=== PATIENT | male | born 1970 | race Caucasian/White ===

== ENCOUNTER → 2017-01-05 | Day surgery (SDC) | payer BC ==
[~2017-01-05] MED LIST: ARTHROTEC PO; ARTHROTEC50 MG PO; ATIVAN1 MG; ATIVAN1 MG PO; AUGMENTIN 875 M1 TAB PO; CYCLOBENZAPRINE10 MG PO; CYCLOBENZAPRINE5 MG PO; DAYPRO600 M1 PO; ELAVIL75 MG PO; MEDROL DOSEPAK4 MG PO; METFORMIN500 MG PO; MOTRIN800 MG PO; NEURONTIN300 MG; NEURONTIN300 MG PO; OMNICEF300 MG PO; PERCOCET 325 MG1 TA7 PO; PREDNICOT20 MG PO; PREDNISONE10 MG PO; PYRIDIUM200 MG PO; SKELAXIN800 MG PO; TOPROL XL100 MG PO; TRAMADOL HCL50 MG PO; VICODEN PO; VICODIN 5/500 505 MG; VICODIN 5/500 505 MG PO; VICODIN 500 MG-1 TAB PO
--- NOTE | ~2017-01-05 | PROC NOTE ---
[place], [place] PROCEDURE NOTE NAME: PETER BAKER [facility] #: [id number] UNIT #: [id number] ROOM: DOCTOR: VENANCIO MASTERS MD BIRTHDATE: [birth year] DOS: 01/05/2017 PREOPERATIVE DIAGNOSIS: Scalp cyst. POSTOPERATIVE DIAGNOSIS: Scalp cyst. PROCEDURE: Excision of scalp cyst. SURGEON: Venancio Masters MD RADIATION ONCOLOGY NURSE: None. ANESTHESIA: Local (1% lidocaine with epinephrine). INDICATIONS: This is a 46-year-old gentleman with a history of longstanding cyst on his scalp who is here for the above-mentioned procedure. The procedure and its complications were explained to the patient in detail preoperatively. Complications that were discussed included but were not limited to, bleeding, infection, and prolonged pain. He agreed to proceed. DESCRIPTION OF PROCEDURE: After identifying the patient, the patient was brought to the operating suite and laid in the supine position. After time-out procedure was called, the parts were painted and draped in the usual sterile fashion. Local anesthesia was infiltrated in a transverse fashion and an incision was made. The skin and the subcutaneous tissue were incised. The cyst was excised in its entirety and sent for histopathological diagnosis. Hemostasis was achieved and thereafter, the skin edges were approximated with the help of 4-0 Vicryl in a subcuticular running fashion. Dressing was placed. The patient tolerated the procedure well. There were no complications. Dr. Venancio Masters, the attending surgeon, was present throughout the operating case. Venancio Masters MD CM:PROCNOTE:PROCEDURE NOTE [id number] VENANCIO MASTERS MD
[2017-01-05 10:45] VITALS: BP 142/81
[2017-01-05 11:26] VITALS: BP 133/89
[2017-01-05 11:35] VITALS: BP 120/86
== END | disposition home or self-care (01) ==
LOC: SDC 12-31 11:00
DX: L72.11 Pilar cyst (principal); I10 Essential (primary) hypertension; F41.9 Anxiety disorder, unspecified; M19.90 Unspecified osteoarthritis, unspecified site; E11.9 Type 2 diabetes mellitus without complications; Z85.51 Personal history of malignant neoplasm of bladder; Z98.890 Other specified postprocedural states; Z83.3 Family history of diabetes mellitus; Z87.891 Personal history of nicotine dependence; Z79.84 Long term (current) use of oral hypoglycemic drugs; Z79.899 Other long term (current) drug therapy

== ENCOUNTER 2018-03-04 12:14 | Emergency (ER) | payer BC ==
[2018-03-04] MEDS ORDERED: ROBAXIN500 M1 PO (12:39)
[2018-03-04] MEDS ORDERED: MEDROL DOSEPAK4 MG PO (12:39)
== END 2018-03-04 13:08 | disposition home or self-care (01) ==
LOC: ED 12:14
DX: M54.41 Lumbago with sciatica, right side (principal); Z79.899 Other long term (current) drug therapy

== ENCOUNTER 2018-03-08 14:38 | Emergency (ER) | payer BC ==
[~2018-03-08] VITALS: Ht 187.9 cm; Wt 111.1 kg
[~2018-03-08 14:38] MED LIST changes: +ROBAXIN500 M1 PO
== END 2018-03-08 16:00 | disposition home or self-care (01) ==
LOC: ED 14:38
DX: M54.30 Sciatica, unspecified side (principal); G89.29 Other chronic pain; Z79.899 Other long term (current) drug therapy; Z85.51 Personal history of malignant neoplasm of bladder; Z98.890 Other specified postprocedural states

== ENCOUNTER 2019-03-19 13:23 | Inpatient (IN) | payer BC ==
[~2019-03-19] VITALS: Ht 187.9 cm; Wt 105.3 kg
[2019-03-19] VITALS (8 sets, daily range): BP systolic 120–162; BP diastolic 61–88
[2019-03-19 13:41] LABS: HEMATOCRIT 43.3 % (42.0-52.0); HEMOGLOBIN 14.7 g/dl (14.0-18.0); MEAN CELL VOLUME 93.5 fl (80.0-94.0); MEAN CORPUSCULAR HGB 31.7 pg (27.0-31.0); MEAN CORPUSCULAR HGB CONC 33.9 g/dl (33.0-37.0); MEAN PLATELET VOLUME 10.7 fl (9.6-12.3); PLATELET COUNT AUTOMATED 207 10*3/uL (130-400); RED BLOOD COUNT 4.63 10*6/uL (4.50-5.90); RED CELL DISTRI WIDTH 12.3 % (0-14.5); WHITE BLOOD COUNT 15.6 10*3/uL (4.8-10.8)
[2019-03-19 13:56] LABS: ALBUMIN 4.1 gm/dl (3.1-4.5); ALKALINE PHOSPHATASE 72 U/L (45-117); BUN 8 mg/dl (7-24); CHLORIDE 104 mmol/L (98-107); CREATININE 0.85 mg/dL (0.70-1.30); LIPASE 80 U/L (73-393); POTASSIUM 3.7 mmol/L (3.5-5.1); SGOT/AST 17 IU/L (3-35); SGPT/ALT 24 U/L (12-78); SODIUM 136 mmol/L (136-145); TOTAL PROTEIN 7.6 gm/dL (6.4-8.2)
[2019-03-19 14:11] LABS: TOTAL CELLS COUNTED 100 #CELLS
[2019-03-19 14:12] LABS: PLATELET SUFFICIENCY NORMAL (NORMAL)
[2019-03-19 14:48] LABS: BILIRUBIN 1+ (NEGATIVE); BLOOD 1+ (NEGATIVE); CLARITY CLEAR (CLEAR); COLOR YELLOW (YELLOW); GLUCOSE NEGATIVE (NEGATIVE); KETONE 3+ (NEGATIVE); LEUKO ESTERASE NEGATIVE (NEGATIVE); NITRITE NEGATIVE (NEGATIVE); PH 5.5 (5.0-9.0); SPECIFIC GRAVITY >= 1.030 (1.005-1.030); UROBILINOGEN 0.2 E.U./dl (0.2-1.0)
--- NOTE | 2019-03-19 16:18 | NUR ---
A 48, admitted to 5E, under the services of ELSIE Antoine MD with a diagnosis of ACUTE APPENDICITIS. Chief complaint is RLQ PAIN. Patient arrived via bed from ER. Monitor applied. Initial assessment completed. Vital signs taken and recorded. ELSIE ANTOINE MD notified of admission to the unit. Orders received. See assessment for past medical history, medications and allergies. Patient and/or family oriented to unit. [facility] visitation policy reviewed. Clothing/patient valuable form completed. FLORENCIA KAYE
[2019-03-19] MEDS ORDERED: PERCOCET 5-3251 EACH PO ×2 (16:21→20:11)
[2019-03-19] MEDS ORDERED: METOPROLOL SUCC50 M1 PO (16:24)
--- NOTE | 2019-03-19 16:24 | NUR ---
MEDS RECONCILED AGAINST CLAIM HISTORY AND WITH PT.
[2019-03-19] MEDS ORDERED: CHANTIX1 M1 PO (16:37)
--- NOTE | 2019-03-19 17:03 | NUR ---
DR OSORIO ALREADY AWARE OF CONSULT.
--- NOTE | 2019-03-19 19:00 | NUR ---
PATIENT HAS NOT RETURNED FROM SURGERY, REPORT RECEIVED, WHITE BOARD UPDATED.
--- NOTE | 2019-03-19 20:01 | NUR ---
24 HR chart check completed.
[2019-03-19] MEDS ORDERED: AUGMENTIN 875875 MG PO (20:12)
--- NOTE | 2019-03-19 20:46 | NUR ---
PATIENT C/O RLQ PAIN, SHARP PAIN 5/10, OFFERED NORCO, ASKED IF HE WAS ABLE TO GET ANYTHING STRONGER, DILAUDID, OFFERED AND GIVEN.
--- NOTE | 2019-03-19 21:45 | NUR ---
DILAUDID GIVEN X 1 HOUR AGO EFFECTIVE, PAIN DECREASED TO 2/10 AND TOLERABLE.
[2019-03-20] VITALS: BP 123/67
--- NOTE | 2019-03-20 04:18 | NUR ---
C/O ABDOMINAL PAIN 4/10 MEDICATED WITH NORCO ORDERED.
--- NOTE | 2019-03-20 05:17 | NUR ---
[place] given x 1 hour ago effective, as evedenced by patient resting quietly with eyes closed, respirations easy and non labored. Bed in lowest position, Siderails up x 2, wheellocks on, call light within reach. on. MCKAYLA CHARLTON
[2019-03-20 06:25] LABS: BASO % 0.3 % (0.0-1.0); EOS % 0.3 % (1.0-4.0); HEMATOCRIT 37.8 % (42.0-52.0); HEMOGLOBIN 12.4 g/dl (14.0-18.0); LYMPH # 2.1 10*3/uL (1.3-4.4); LYMPH % 17.7 % (27.0-41.0); MEAN CELL VOLUME 95.7 fl (80.0-94.0); MEAN CORPUSCULAR HGB 31.4 pg (27.0-31.0); MEAN CORPUSCULAR HGB CONC 32.8 g/dl (33.0-37.0); MEAN PLATELET VOLUME 11.4 fl (9.6-12.3); MONO % 8.5 % (3.0-9.0); NEUT # 8.4 10*3/uL (2.3-7.9); NEUT % 72.8 % (47.0-73.0); PLATELET COUNT AUTOMATED 181 10*3/uL (130-400); RED BLOOD COUNT 3.95 10*6/uL (4.50-5.90); RED CELL DISTRI WIDTH 12.6 % (0-14.5); WHITE BLOOD COUNT 11.6 10*3/uL (4.8-10.8)
[2019-03-20 06:51] LABS: BUN 5 mg/dl (7-24); CHLORIDE 109 mmol/L (98-107); CREATININE 0.69 mg/dL (0.70-1.30); POTASSIUM 3.8 mmol/L (3.5-5.1); SODIUM 138 mmol/L (136-145)
[2019-03-20 08:00] VITALS: BP 125/75
[2019-03-20 12:00] VITALS: BP 130/73
--- NOTE | 2019-03-20 13:15 | NUR ---
PATIENT DISCHARGED TO HOME. IV DISCONTINUED. DISCHARGE INSTRUCTIONS GIVEN AND REVIEWED WITH PATIENT. PATIENT INFORMED OF PRESCRIPTION BEING SENT TO [facility]. ALL PERSONAL BELONGINGS SENT WITH PATIENT.
== END 2019-03-20 13:31 | disposition home or self-care (01) | DRG 343 ==
LOC: ED 13:23 → EDHOLD 15:54 → 5E 16:05
PROVIDERS: Nurse Practitioner Family; ADMIT Internal Medicine
PROC: 0DTJ4ZZ Resection of Appendix, Percutaneous Endoscopic Approach (ICD-10-PCS; principal; 2019-03-19)
DX: K35.890 Other acute appendicitis without perforation or gangrene (principal); I10 Essential (primary) hypertension; E11.9 Type 2 diabetes mellitus without complications; F17.210 Nicotine dependence, cigarettes, uncomplicated; M48.061 Spinal stenosis, lumbar region without neurogenic claudication; Z79.84 Long term (current) use of oral hypoglycemic drugs; Z83.3 Family history of diabetes mellitus; Z85.51 Personal history of malignant neoplasm of bladder

== ENCOUNTER → 2019-09-05 | Outpatient (CLI) | payer BC ==
[~2019-09-05] MED LIST changes: +AUGMENTIN 875875 MG PO; +CHANTIX1 M1 PO; +METOPROLOL SUCC50 M1 PO; +PERCOCET 5-3251 EACH PO
== END | disposition home or self-care (01) ==
LOC: LAB 12:08
DX: D40.0 Neoplasm of uncertain behavior of prostate (principal); R53.83 Other fatigue

== ENCOUNTER → 2022-01-06 | Outpatient (CLI) | payer BC | END | disposition home or self-care (01) | LOC: MRI 09:00 | PROVIDERS: ATTEND Internal Medicine | DX: R41.3 Other amnesia (principal) ==

== ENCOUNTER → 2022-01-27 | Outpatient (CLI) | payer BC | END | disposition home or self-care (01) | LOC: US 12:57 | PROVIDERS: ATTEND Internal Medicine | DX: I65.23 Occlusion and stenosis of bilateral carotid arteries (principal) ==

== ENCOUNTER → 2022-02-11 | Outpatient (CLI) | payer BC | END | disposition home or self-care (01) | LOC: CARD 12:11 | PROVIDERS: ATTEND Internal Medicine | DX: R06.02 Shortness of breath (principal) ==

== ENCOUNTER → 2022-08-18 | Outpatient (CLI) | payer BC ==
[2022-08-18 07:37] LABS: BASO # 0.1 10*3/uL (0.0-0.1); BASO % 1.2 % (0.0-1.0); EOS # 0.1 10*3/uL (0.0-0.4); EOS % 3.3 % (1.0-4.0); HEMATOCRIT 45.9 % (42.0-52.0); LYMPH # 1.7 10*3/uL (1.3-4.4); LYMPH % 40.6 % (27.0-41.0); MEAN CELL VOLUME 93.9 fl (80.0-94.0); MEAN CORPUSCULAR HGB 30.7 pg (27.0-31.0); MEAN CORPUSCULAR HGB CONC 32.7 g/dl (33.0-37.0); MONO # 0.4 10*3/uL (0.1-1.0); MONO % 9.6 % (3.0-9.0); NEUT # 1.9 10*3/uL (2.3-7.9); NEUT % 45.1 % (47.0-73.0); PLATELET COUNT AUTOMATED 231 10*3/uL (130-400); RED BLOOD COUNT 4.89 10*6/uL (4.50-5.90); RED CELL DISTRI WIDTH 12.4 % (0-14.5); WHITE BLOOD COUNT 4.3 10*3/uL (4.8-10.8)
[2022-08-18 07:54] LABS: ALKALINE PHOSPHATASE 75 U/L (46-116); BUN 17 mg/dl (9-23); CHLORIDE 107 mmol/L (98-107); CHOLESTEROL 143 mg/dL (<200); FREE T4 1.12 ng/dl (0.89-1.76); LDL CHOLESTEROL 74 mg/dL (9-159); POTASSIUM 4.3 mmol/L (3.4-5.1); SGPT/ALT 30 U/L (10-49); THYROID STIM HORMONE (HS) 0.653 uIU/ml (0.550-4.780); TOTAL PROTEIN 6.9 gm/dL (6.0-8.0); TRIGLYCERIDES 115 mg/dl (<150)
[2022-08-18 08:23] LABS: VITAMIN D, 25-HYDROXY 91.2 ng/mL (30-100)
== END | disposition home or self-care (01) ==
LOC: LAB 07:17
PROVIDERS: ATTEND Internal Medicine
DX: Z13.21 Encounter for screening for nutritional disorder (principal); Z13.0 Encounter for screening for diseases of the blood and blood-forming organs and certain disorders involving the immune mechanism; Z13.1 Encounter for screening for diabetes mellitus; Z13.220 Encounter for screening for lipoid disorders; Z13.228 Encounter for screening for other metabolic disorders; Z13.6 Encounter for screening for cardiovascular disorders; I10 Essential (primary) hypertension; M48.062 Spinal stenosis, lumbar region with neurogenic claudication; M47.816 Spondylosis without myelopathy or radiculopathy, lumbar region; I67.89 Other cerebrovascular disease; E11.9 Type 2 diabetes mellitus without complications; F33.0 Major depressive disorder, recurrent, mild; M15.0 Primary generalized (osteo)arthritis; Z85.51 Personal history of malignant neoplasm of bladder; Z79.891 Long term (current) use of opiate analgesic; F41.1 Generalized anxiety disorder